=== PATIENT | male | born 1945 | race Caucasian/White ===

== ENCOUNTER 2019-03-26 09:37 | Day surgery (SDC) | payer OTHER, MEDICARE ==
[2019-03-26 10:50] VITALS: BMI 27.4
[2019-03-26 12:36] VITALS: BP 163/69; PULSE 51; TEMP 98
--- NOTE | 2019-03-29 15:48 | PATH ---
Surgical Pathology Report Patient Name: EBONY BEASLEY [facility]. Rec. #: [id number] /Age/Gender: 1945 (Age: 74) / M Account: [id number] Location: [facility]-ENDOSCOPY Taken: 03/26/2019 Received: 03/26/2019 Reported: 03/29/2019 Physicians: Mak Noriega M.D. Specimen(s) Received A: 2ND PORTION DUODENAL BULB B: GASTRIC ANTRUM & ULCERATED GASTRIC NODULE C: ANTRAL POLYP D: PROXIMAL TRANSVERSE POLYP Clinical History Anemia, weight loss, rule out gastric cancer Postoperative diagnosis: Gastric polyps, gastric ulcer, transverse colonic polyp, diverticulosis Final Diagnosis A. SECOND PORTION DUODENUM AND BULB, BIOPSY: DUODENAL MUCOSA WITH NO SIGNIFICANT PATHOLOGIC CHANGE. NO HISTOLOGIC EVIDENCE OF INTRAEPITHELIAL LYMPHOCYTOSIS. B. GASTRIC ANTRUM, BIOPSY: GASTRIC MUCOSA WITH CHRONIC, FOCALLY MILD ACUTE GASTRITIS. REACTIVE GASTROPATHY PRESENT. IMMUNOSTAIN FOR H. PYLORI IS NEGATIVE. NEGATIVE FOR INTESTINAL METAPLASIA. ONE SEPARATE FRAGMENT OF UNREMARKABLE DUODENAL MUCOSA. C. ANTRAL POLYP, BIOPSY: SUPERFICIAL PORTION OF GASTRIC MUCOSA WITH FOCAL FOVEOLAR HYPERPLASIA. IMMUNOSTAIN FOR H. PYLORI IS NEGATIVE. NEGATIVE FOR INTESTINAL METAPLASIA. D. PROXIMAL TRANSVERSE COLON, POLYPECTOMY: INFLAMMATORY POLYP. Electronically Signed Mk Lugo M.D. Gross Description A. Received in formalin, labeled "biopsy second portion of duodenum and bulb" are 2 aguilar, irregular portions of soft tissue measuring 0.3 and 0.4 cm. in greatest dimension. The specimens are submitted in toto in one cassette. B. Received in formalin, labeled "biopsy gastric antrum and ulcerated gastric nodule" are 6 aguilar, irregular portions of soft tissue ranging from 0.2-0.6 cm. in greatest dimension. The specimens are submitted in toto in one cassette. C. Received in formalin, labeled "biopsy antral polyp" are 3 aguilar, irregular portions of soft tissue ranging from 0.1-0.3 cm. in greatest dimension. The specimens are submitted in toto in one cassette. D. Received in formalin, labeled "proximal transverse colon polyp" is a aguilar, polypoid portion of soft tissue measuring 0.7 cm. in greatest dimension. The specimen is submitted in toto in one cassette. 03/26/2019 saudi03/26/2019
== END 2019-03-26 12:36 | disposition home or self-care (01) ==
LOC: JASU-ENDO 09:37
PROVIDERS: ATTEND Internal Medicine Gastroenterology
PROC: 0DB98ZX Excision of Duodenum, Via Natural or Artificial Opening Endoscopic, Diagnostic (ICD-10-PCS; 2019-03-26)
PROC: 0DB68ZX Excision of Stomach, Via Natural or Artificial Opening Endoscopic, Diagnostic (ICD-10-PCS; 2019-03-26)
PROC: 0DBL8ZX Excision of Transverse Colon, Via Natural or Artificial Opening Endoscopic, Diagnostic (ICD-10-PCS; principal; 2019-03-26 10:30)
DX: Z12.11 Encounter for screening for malignant neoplasm of colon (principal); Z86.010 Personal history of colon polyps; K92.1 Melena; D12.3 Benign neoplasm of transverse colon; K64.8 Other hemorrhoids; K57.30 Diverticulosis of large intestine without perforation or abscess without bleeding; K31.7 Polyp of stomach and duodenum; K29.00 Acute gastritis without bleeding
CPT/HCPCS: 88305-TC; 88342-TC

== ENCOUNTER 2021-04-25 04:31 | Day surgery (SDC) | payer OTHER, MEDICARE ==
[2021-04-24 17:13] VITALS: BMI 25.7
[~2021-04-25 04:31] MED LIST: ACETAMINOPHEN 325 MG TABLET (FP) PO PRN
[2021-04-25] MEDS ORDERED: CHONDROITIN SU A/HYALUR SOD 1 KIT ONE (06:58)
[2021-04-25] MEDS ORDERED: POVIDONE-IODINE 5% OPHTHALMIC PREP 30 ML SOLUTION ONE (07:26)
[2021-04-25] MEDS: TROPICAMIDE 1% OPHTH SOLN 15 ML BOTTLE OP SCH ×3 (10:45→11:03)
[2021-04-25] MEDS: OFLOXACIN 0.3% OPHTHALMIC SOLUTION 5 ML BOTTLE OP SCH ×3 (10:45→11:04)
[2021-04-25] MEDS: CYCLOPENTOLATE HCL 1% OPHTH SOLN 2 ML BOTTLE OP SCH ×3 (10:45→11:04)
[2021-04-25] MEDS: KETOROLAC TROMETHAMINE 0.5% EYE DROP 1 DROP DROPS OP SCH ×3 (10:45→11:04)
[2021-04-25] MEDS: PHENYLEPHRINE 2.5% OPHTH SOLN 15 ML BOTTLE OP SCH ×3 (10:45→11:04)
[2021-04-25] MEDS ORDERED: CYCLOPENTOLATE HCL 1% OPHTH SOLN 2 ML BOTTLE ONE (10:48)
[2021-04-25] MEDS ORDERED: PHENYLEPHRINE 2.5% OPTHALMIC DROP BOTTLE ONE (10:48)
[2021-04-25] MEDS ORDERED: TROPICAMIDE 1% OPHTH SOLN 15 ML BOTTLE ONE (10:48)
[2021-04-25] MEDS ORDERED: KETOROLAC TROMETHAMINE 0.5% EYE DROP 1 DROP DROPS ONE (10:48)
[2021-04-25] MEDS ORDERED: OFLOXACIN 0.3% OPHTHALMIC SOLUTION 5 ML BOTTLE ONE (10:48)
[2021-04-25] MEDS ORDERED: PROPOFOL 20 ML ONE (11:55)
[2021-04-25] MEDS ORDERED: TRIAMCINOLONE ACET 40MG/1ML VIAL ONE (12:06)
[2021-04-25] MEDS ORDERED: DEXAMETHASONE SOD PHOSPHATE 4 MG/1 ML VIAL ONE (12:19)
[2021-04-25] MEDS ORDERED: POVIDONE-IODINE 5% OPHTHALMIC PREP 30 ML SOLUTION OD ONE (12:20)
[2021-04-25] MEDS ORDERED: BSS (NA/CA/MG/K) BALANCED SALT SOLUTION OPHTH SOLN 15 ML BOTTLE OD ONE (12:27)
[2021-04-25] MEDS ORDERED: CHONDROITIN SU A/HYALUR SOD 1 KIT IO ONE (12:28)
[2021-04-25] MEDS ORDERED: LIDOCAINE HCL 1% PRESERVATIVE FREE - 30ML VIAL IO ONE (12:28)
[2021-04-25] MEDS ORDERED: EPINEPHrine/PF 1 MG/1 ML (1:1,000) AMPULE SQ ONE (12:33)
[2021-04-25] MEDS ORDERED: PHENYLEPHRINE HCL 10 MG/1 ML SINGLE DOSE VIAL ONE (12:35)
[2021-04-25] MEDS ORDERED: TRIAMCINOLONE ACET 40MG/1ML VIAL NR ONE (12:48)
[2021-04-25] MEDS ORDERED: ONDANSETRON 4 MG/2 ML VIAL IVPUSH PRN (13:09)
[2021-04-25] MEDS ORDERED: SODIUM CHLORIDE 1,000 ML IV SCH (13:15)
[2021-04-25 17:31] VITALS: BP 127/60; PULSE 69; TEMP 97.9
== END 2021-04-25 17:15 | disposition home or self-care (01) ==
LOC: JASU-SURG 04:31
PROVIDERS: ATTEND Ophthalmology
PROC: 08RJ3JZ Replacement of Right Lens with Synthetic Substitute, Percutaneous Approach (ICD-10-PCS; principal; 2021-04-25 12:00)
DX: H26.9 Unspecified cataract (principal); F03.90 Unspecified dementia, unspecified severity, without behavioral disturbance, psychotic disturbance, mood disturbance, and anxiety
CPT/HCPCS: 94760